=== PATIENT | male | born 1975 | race American Indian/Alaskan Native ===

== ENCOUNTER 2020-11-01 09:48 | Emergency (ER) | payer BC ==
--- NOTE | 2020-11-01 10:53 | Emergency Department Report ---
- General Chief Complaint: Dyspnea/Respdistress Stated Complaint: POSITIVE COVID TEST/PAULA/CP Time Seen by Provider: 11/01/20 10:39 Source: patient Mode of arrival: Ambulatory Limitations: No Limitations - History of Present Illness Initial Comments: 45-year-old -[place] male who tested positive for Covid on Wednesday night presents to the emergency room for shortness of breath and coughing. Patient states that his symptoms started that Wednesday. Patient also reports that he feels like he has phlegm in his chest. He denies any chest pain. States that he has some dizziness feels like the room is spinning. He came in by private vehicle with his girlfriend. Patient did not get a Covid 19 vaccine. Patient does have a primary care provider. Denies any fever chills denies any loss of taste or smell. Does have comorbidity of hypertension but is stable on amlodipine. MD Complaint: cough -: This morning Severity: moderate Severity scale (0 -10): 2 Consistency: intermittent Worsens With: nothing Context: other (Positive Covid) Associated Symptoms: cough, shortness of breath (Mild). denies: headache, rhinorrhea, nasal congestion, chest pain, abdominal pain, nausea, vomiting - Related Data Previous Rx's Medication Instructions Recorded Last Taken Type Albuterol Sulfate [Proventil Hfa] 6.7 gm IH QID PRN #1 [email or web address] 11/01/20 Unknown Rx Allergies Allergy/AdvReac Type Severity Reaction Status Date / Time No Known Allergies Allergy Unverified 11/01/20 09:55 ED Review of Systems ROS: Stated complaint: POSITIVE COVID TEST/PAULA/CP Other details as noted in HPI Comment: All other systems reviewed and negative ED Past Medical Hx - Past Medical History Previous Medical History?: Yes Hx Hypertension: Yes - Surgical History Past Surgical History?: Yes Additional Surgical History: shoulder surgery, appy, hernia repair - Medications Home Medications: Home Medications Medication Instructions Recorded Confirmed Last Taken Type Albuterol Sulfate [Proventil Hfa] 6.7 gm IH QID PRN #1 [email or web address] 11/01/20 Unknown Rx ED Physical Exam - General Limitations: No Limitations General appearance: alert, in no apparent distress - Head Head exam: Present: atraumatic, normocephalic - Eye Eye exam: Present: normal appearance - ENT ENT exam: Present: mucous membranes moist - Neck Neck exam: Present: normal inspection - Respiratory Respiratory exam: Present: normal lung sounds bilaterally. Absent: respiratory distress - Cardiovascular Cardiovascular Exam: Present: regular rate, normal rhythm. Absent: systolic murmur, diastolic murmur, rubs, gallop - GI/Abdominal GI/Abdominal exam: Present: soft, normal bowel sounds - Rectal Rectal exam: Present: deferred - Extremities Exam Extremities exam: Present: normal inspection - Back Exam Back exam: Present: normal inspection - Neurological Exam Neurological exam: Present: alert, oriented X3 - Psychiatric Psychiatric exam: Present: normal affect, normal mood - Skin Skin exam: Present: warm, dry, intact, normal color. Absent: rash ED Course Vital Signs 11/01/20 09:55 Temperature 98.1 F Pulse Rate 84 Respiratory 18 Rate Blood Pressure 130/89 O2 Sat by Pulse 98 Oximetry ED Medical Decision Making - Medical Decision Making 45-year-old -[place] male who tested positive for Covid on Wednesday night presents to the emergency room for shortness of breath and coughing. Patient states that his symptoms started that Wednesday. Patient also reports that he feels like he has phlegm in his chest. He denies any chest pain. States that he has some dizziness feels like the room is spinning. He came in by private vehicle with his girlfriend. Patient did not get a Covid 19 vaccine. Patient does have a primary care provider. Denies any fever chills denies any loss of taste or smell. Does have comorbidity of hypertension but is stable on amlodipine. Discussed with patient that this is the normal progression of Covid. Discussed with patient I will give him prescription for albuterol inhaler to help with the cough and possible shortness of breath. Discussed with patient if his symptoms gets worse or is not able to ambulate from the bedroom to the kitchen of the bedroom to the bathroom without getting severely short of breath that he needs to return back to the emergency room for reevaluation. Discussed with patient is continue quarantining. Increase his fluid intake. Tylenol or ibuprofen as needed for discomfort. Critical care attestation.: If time is entered above; I have spent that time in minutes in the direct care of this critically ill patient, excluding procedure time. ED Disposition Clinical Impression: COVID-19 Disposition: DC- TO HOME OR SELFCARE Is pt being admited?: No Does the pt Need Aspirin: No Condition: Stable Instructions: COVID-19 Frequently Asked Questions, Prevent the Spread of COVID- 19 if You Are Sick - [facility] Additional Instructions: Please use inhaler for cough or shortness of breath. Please understand if your shortness of breath gets worse that you are gasping for air not able to ambulate from the room to the bathroom or from the room to the kitchen to please return back to the emergency room to be evaluated. Please continue to quarantine and retest after 14 days. Prescriptions: Albuterol Sulfate [Proventil Hfa] 6.7 gm IH QID PRN #1 [email or web address] PRN Reason: Shortness Of Breath Referrals: BASSAM CAMPOS NP [Referring] - 3-5 Days
[2020-11-01 11:13] VITALS: BP 137/88
== END 2020-11-01 11:11 | disposition home or self-care (01) ==
LOC: ED 09:48
DX: U07.1 COVID-19 (principal); I10 Essential (primary) hypertension; Z98.890 Other specified postprocedural states; Z79.899 Other long term (current) drug therapy
CPT/HCPCS: 99282